=== PATIENT | male | born 1975 | race Caucasian/White ===

== ENCOUNTER 2020-11-13 21:50 | Emergency (ER) | payer BC ==
[~2020-11-13] VITALS: Ht 185.4 cm; Wt 99.8 kg
[2020-11-13] MEDS ORDERED: LORAZEPAM 2 MG/1 ML VIAL IV ONE (22:00)
[2020-11-13] MEDS ORDERED: ONDANSETRON 4 MG/2 ML VIAL IV ONE (22:00)
[2020-11-13] MEDS ORDERED: IV NORMAL SALINE 1000 ML BAG IV ONE (22:00)
--- NOTE | 2020-11-13 22:00 | NUR ---
Pt bib ambulance from home for anxiety, nausea and possible od on marijuana. Pt on arrival was confused, sweating and vomiting. Vss. AOx2.
--- NOTE | 2020-11-13 22:13 | NUR ---
Pt is no longer nauseous and feels less anxious. Aox3, resting in bed w/ eyes closed. NAD. Will continue to monitor.
[2020-11-13] MEDS ORDERED: ONDANSETRON 4 MG/2 ML VIAL ONE (22:15)
[2020-11-13] MEDS ORDERED: LORAZEPAM 2 MG/1 ML VIAL ONE (22:15)
[2020-11-13 22:47] LABS: CARBON DIOXIDE 27 mmol/L (21-32); CHLORIDE 101 mmol/L (98-107); CREATININE 1.5 mg/dL (0.6-1.3); GLUCOSE 187 mg/dL (74-106); POTASSIUM 2.9 mmol/L (3.5-5.1); UREA NITROGEN, BLOOD 21 mg/dL (7-18)
[2020-11-13 22:57] LABS: HEMATOCRIT 43.1 % (36.7-47.1); MEAN CORPUSCULAR HEMOGLOBIN 31.4 uug (23.8-33.4); MEAN CORPUSCULAR VOLUME 93.3 fL (73.0-96.2); PLATELET COUNT (AUTO) 343 K/uL (152-348)
[2020-11-13 23:00] LABS: ALANINE AMINOTRANSFERASE 26 U/L (16-63); ALKALINE PHOSPHATASE 79 U/L (50-136); ASPARTATE AMINOTRANSFERASE 18 U/L (15-37); BILIRUBIN,DIRECT 0.1 mg/dL (0.0-0.2); BILIRUBIN,TOTAL 0.6 mg/dL (0.2-1.0); LIPASE 118 U/L (73-393); TOTAL PROTEIN, SERUM 7.4 g/dL (6.4-8.2)
--- NOTE | 2020-11-13 23:00 | NUR ---
Pt sleeping, is no longer nauseous, sweating or vomiting. States he feels better. Comfort measures offered. Denies other symptoms. Will continue to monitor.
[2020-11-13 23:09] LABS: ETHANOL < 3 MG/DL (0-0)
[2020-11-13 23:20] LABS: ACETAMINOPHEN < 2.0 ug/mL (10-30)
[2020-11-13] MEDS ORDERED: POTASSIUM BICARBONATE/CIT AC 25 MEQ TABLET.EFF PO ONE (23:30)
[2020-11-13] MEDS ORDERED: POTASSIUM BICARBONATE/CIT AC 25 MEQ TABLET.EFF ONE (23:41)
--- NOTE | 2020-11-14 | NUR ---
Pt refused to provide urine sample.
--- NOTE | 2020-11-14 00:18 | NUR ---
IV removed. Catheter intact and site benign. Pressure and 4x4 gauze applied to site. No bleeding noted.
--- NOTE | 2020-11-14 00:20 | NUR ---
Pt aox4, walks with steady gait. No signs of distress. Vss. Patient discharged to home, driven home by his , in stable condition. Written and verbal after care instructions given. Patient verbalizes understanding of instructions. Stressed follow up or return to ER for worsening s/s. All belongings taken.
[2020-11-14 00:51] VITALS: BP 134/97
== END 2020-11-14 00:15 | disposition home or self-care (01) ==
LOC: ER 21:54
DX: T40.7X1A Poisoning by cannabis (derivatives), accidental (unintentional), initial encounter (principal); R11.0 Nausea; F22 Delusional disorders; U07.0 Vaping-related disorder; E87.6 Hypokalemia; Y92.89 Other specified places as the place of occurrence of the external cause; F12.10 Cannabis abuse, uncomplicated; K21.9 Gastro-esophageal reflux disease without esophagitis; R00.0 Tachycardia, unspecified
CPT/HCPCS: 36415; 71045; 80048; 80076; 80179; 80299; 80320; 83690; 83880; 84484; 85025; 93005; 96374; 96375; 99285; J2060; J2405; 70030-TC; G0480; J7030